=== PATIENT | female | born 1980 | race Caucasian/White ===

== ENCOUNTER → 2018-10-20 | Day surgery (SDC) | payer BC ==
[~2018-10-20] MED LIST: FENTANYL CITRATE/PF 100MCG/2 ML INJ ONE; LIDOCAINE HCL 2% LOCAL INJ 5 ML SDV VIAL INJ ONE; LORAZEPAM2 MG PO; MIDAZOLAM HCL 2 MG/2 ML VIAL ONE; PROPOFOL IV EMULSION 10 MG/ML 20 ML VIAL ONE; TYLENOL WITH C1 EACH PO
--- OUTSIDE RECORDS SUMMARY | 2018-10-20 09:32 | XMS REPORT | Clinical Summary ---
Author Author [facility] Organization [facility] Address Unknown Phone Unavailable Care Team Providers Care Superintendent [employer] Name Role Phone Asked, No Pcp PCP Unavailable Allergies Comments Active Allergy Reactions Severity Noted Date No Known Drug Allergies 01/30/2016 Medications End Date Status Medication Sig Dispensed Refills Start Date Active MULTIVITAMIN (DAILY Take by 0 VITAMIN ORAL) mouth. Post felecia vitamins Active ACETAMINOPHEN (TYLENOL Take by mouth 0 ORAL) as needed. Active LORATADINE (CLARITIN Take by mouth 0 ORAL) as needed. Active Problems Problem Noted Date Cervical cancer 04/21/2017 Cancer Staging: Clinical stage from 06/03/2017: FIGO Stage IA1 (T1a1, N0, M0) - Signed by Jovon Jon MD on 06/03/2017 Encounters Care Team Description Date Type Specialty Jovon Jon MD Personal history of malignant neoplasm of cervix uteri 09/27/2018 Office Visit Gynecologic Oncology Jovon Jon MD 09/27/2018 Orders Only Gynecologic Oncology Jovon Jon MD Personal history of malignant neoplasm of cervix uteri 04/12/2018 Office Visit Gynecologic Oncology Jovon Jon MD Screening mammogram, encounter for (Primary Dx) 11/30/2017 Office Visit Gynecologic Oncology Jovon Jon MD 11/23/2017 Telephone Gynecologic Oncology after 10/19/2017 Family History Medical History Relation Name Comments Breast cancer Maternal Aunt Hypertension Mother Hypothyroidism Mother Relation Name Status Comments Maternal Aunt Mother Social History Date Tobacco Use Types Packs/Day Years Used Quit: 2015 Former Smoker 1 10 Smokeless Tobacco: Never Used Alcohol Use Drinks/Week oz/Week Comments No Sex Assigned at Date Recorded Not on file Industry Job Start Date Occupation Not on file Not on file Not on file Travel End Travel History Travel Start No recent travel history available. Last Filed Vital Signs Time Taken Vital Sign Reading 09/27/2018 11:25 AM [employer] Blood Pressure 105/73 09/27/2018 11:25 AM [employer] Pulse 61 - Temperature - - Respiratory Rate - - Oxygen Saturation - - Inhaled Oxygen - Concentration 09/27/2018 11:25 AM [employer] Weight 68 kg (150 lb) - Height - 09/27/2018 11:25 AM [employer] Body Mass Index 24.96 Plan of Treatment Health Maintenance Due Date Last Done Comments INFLUENZA VACCINE 02/24/2018 CERVICAL CANCER SCREENING 09/27/2021 09/27/2018 Procedures Comments Procedure Name Priority Date/Time Associated Diagnosis PAP LB (LIQUID-BASED) Routine 09/27/2018 12:00 AM [facility] [facility] after 10/19/2017 Results * Pap Lb (Liquid-based) (09/27/2018 12:00 AM [employer]) Pap smear, ThinPrep NILM [facility] Comment: DIAGNOSIS: Negative for intraepithelial lesion or malignancy ADEQUACY: Satisfactory for evaluation / Satisfactory for evaluation COMMENT: This Pap smear was screened with the assistance of the [employer] ThinPrep(TM) Imaging System and screened by a learning and development administrator. SPECIMEN SOURCE:PAP, LIQUID-BASED, NOT PROVIDED ELECTRONICALLY SIGNED BY: Screened By: KATE Jackson (ASCP) Case Electronically Signed 10/05/2018 Performing Organization Address City/State/Zipcode Phone Number [facility] after 10/19/2017 Insurance Payer Benefit Subscriber ID Type Phone Address Plan / Group AETNA AETNA xxxxxxxxxxx PPO [facility] PPO Advance Directives Patient has advance care planning documents on file. For more information, sarah beth rasheed contact: Rj Baxter [phone] [place] [address]
[2018-10-20 13:20] VITALS: BP 110/67
== END | disposition home or self-care (01) ==
LOC: OR 09:29
PROVIDERS: ATTEND Internal Medicine Gastroenterology
DX: K92.1 Melena (principal); K64.8 Other hemorrhoids; Z71.3 Dietary counseling and surveillance; E66.3 Overweight; Z68.25 Body mass index [BMI] 25.0-25.9, adult; Z87.891 Personal history of nicotine dependence
CPT/HCPCS: 45378; J2001; J2250; J2704